=== PATIENT | male | born 1945 | race Caucasian/White ===

== ENCOUNTER 2020-08-19 05:54 | Day surgery (SDC) | payer MEDICARE ==
[2020-08-18 10:37] LABS: EOSINOPHILS # (AUTO) 0.1 X10'3 (0-0.9); EOSINOPHILS % (AUTO) 2.5 % (0-6); HEMATOCRIT 41.5 % (42.0-52.0); MEAN CORPUSCULAR HEMOGLOBIN 26.9 PG (27.0-31.0); MONOCYTES # (AUTO) 0.5 X10'3 (0-0.9)
[2020-08-18 10:39] LABS: BASOPHILS # (AUTO) 0.1 X10'3 (0-0.2); BASOPHILS % (AUTO) 1.3 % (0-1); HEMOGLOBIN 13.7 g/dl (14.0-17.9); LYMPHOCYTES # (AUTO) 0.9 X10'3 (1.1-4.8); LYMPHOCYTES % (AUTO) 16.3 % (21-51); MEAN CORPUSCULAR VOLUME 81.6 FL (78-98); MEAN PLATELET VOLUME 7.5 FL (7.4-10.4); MONOCYTES % (AUTO) 9.8 % (2-12); NEUTROPHILS # (AUTO) 3.9 X10'3 (1.8-7.7); NEUTROPHILS % (AUTO) 70.1 % (42-75); PLATELET COUNT 230 X10'3 (140-440); RED BLOOD COUNT 5.08 X10'6 (4.70-6.10); RED CELL DISTRIBUTION WIDTH 15.8 % (11.5-14.5); WHITE BLOOD COUNT 5.5 X10'3 (4.5-11.0)
[2020-08-18 10:43] LABS: ALBUMIN 3.7 G/DL (3.4-5.0); ANION GAP 10 (8-16); CALCIUM 9.8 MG/DL (8.5-10.1); CHLORIDE 105 MMOL/L (99-107); CREATININE 1.54 MG/DL (0.60-1.10); POTASSIUM 4.1 MMOL/L (3.5-5.1); SODIUM 140 MMOL/L (135-145); eGFR 44 ML/MIN
[2020-08-18 10:44] LABS: BLOOD UREA NITROGEN 24 MG/DL (7-18); BUN/CREATININE RATIO 15.6 (5.4-32.0); GLUCOSE 127 MG/DL (70-104)
[~2020-08-19] VITALS: Ht 190.5 cm; Wt 132.5 kg
[~2020-08-19 05:54] MED LIST: APIX5TAB3 PO; DILT240C90 PO; FLO0.4C PO; METF-436 PO; ZOLP10TA PO
[2020-08-19] MEDS ORDERED: amiodarone 150mg/dext, iso-os 100 ML IV ONE (06:20)
[2020-08-19] MEDS ORDERED: diphenhydrAMINE 25mg capsule PO ONE (06:20)
[2020-08-19] MEDS ORDERED: atropine 0.1mg/ml 10ml syringe IV ONE (06:20)
[2020-08-19] MEDS ORDERED: MIDAZolam 1mg/ml 10ml vial IV ONE (06:20)
[2020-08-19] MEDS ORDERED: morphine 10mg/ml inj. IV ONE (06:20)
[2020-08-19] MEDS ORDERED: LORazepam 0.5 MG tablet PO ONE (06:20)
--- NOTE | 2020-08-19 06:42 | NUR ---
Patient came in and EKG was done for cardioversion, patient was sinus rhythm, ekg was faxed to Dr. Robertson office, and office was called regarding ekg. Dr. Robertson office called back and stated to cancel the cardioversion, and make a followup appointment after 9am today with the office. Patient states he understands.
== END 2020-08-19 06:35 | disposition home or self-care (01) ==
LOC: SSTAY O 05:54
PROVIDERS: ATTEND Internal Medicine Cardiovascular Disease
DX: I48.0 Paroxysmal atrial fibrillation (principal); Z53.8 Procedure and treatment not carried out for other reasons; I11.0 Hypertensive heart disease with heart failure; I50.30 Unspecified diastolic (congestive) heart failure; E11.9 Type 2 diabetes mellitus without complications; K21.9 Gastro-esophageal reflux disease without esophagitis; G47.00 Insomnia, unspecified; Z79.899 Other long term (current) drug therapy; Z82.49 Family history of ischemic heart disease and other diseases of the circulatory system
CPT/HCPCS: 36415; 80048; 85025; 85610; 93005

== ENCOUNTER 2021-04-13 11:27 | Emergency (ER) | payer MEDICARE ==
[~2021-04-13] VITALS: Ht 190.5 cm; Wt 140.0 kg
[2021-04-13] MEDS ORDERED: normal saline 1000ML IV soln IVB ONE (12:10)
[2021-04-13] MEDS ORDERED: diltiazem 5mg/ml 5ml inj. IV ONE (12:10)
[2021-04-13 12:28] LABS: BASOPHILS # (AUTO) 0.1 X10'3 (0-0.2); EOSINOPHILS # (AUTO) 0.1 X10'3 (0-0.9); EOSINOPHILS % (AUTO) 0.9 % (0-6); HEMATOCRIT 42.4 % (42.0-52.0); HEMOGLOBIN 13.9 g/dl (14.0-17.9); LYMPHOCYTES # (AUTO) 0.8 X10'3 (1.1-4.8); LYMPHOCYTES % (AUTO) 13.3 % (21-51); MEAN CORPUSCULAR HGB CONC 32.7 g/dL (33.0-36.5); MEAN CORPUSCULAR VOLUME 85.5 FL (78-98); MEAN PLATELET VOLUME 8.6 FL (7.4-10.4); MONOCYTES # (AUTO) 0.5 X10'3 (0-0.9); MONOCYTES % (AUTO) 7.9 % (2-12); NEUTROPHILS # (AUTO) 4.8 X10'3 (1.8-7.7); NEUTROPHILS % (AUTO) 76.9 % (42-75); PLATELET COUNT 238 X10'3 (140-440); RED BLOOD COUNT 4.96 X10'6 (4.70-6.10); RED CELL DISTRIBUTION WIDTH 16.1 % (11.5-14.5); WHITE BLOOD COUNT 6.3 X10'3 (4.5-11.0)
[2021-04-13 12:38] LABS: ANION GAP 11 (8-16); CHLORIDE 106 MMOL/L (99-107); CREATININE 1.22 MG/DL (0.60-1.10); POTASSIUM 3.9 MMOL/L (3.5-5.1); SODIUM 140 MMOL/L (135-145); TOTAL CARBON DIOXIDE 23.4 MMOL/L (24-32); eGFR 57 ML/MIN
[2021-04-13 12:44] LABS: ALANINE AMINOTRANSFERASE 19 U/L (12-78); ALBUMIN 3.5 G/DL (3.4-5.0); ALBUMIN/GLOBULIN RATIO 0.8 (1.1-1.5); ALKALINE PHOSPHATASE 74 IU/L (46-116); ASPARTATE AMINO TRANSFERASE 14 U/L (10-37); BILIRUBIN,TOTAL 1.4 MG/DL (0.1-1.0); BLOOD UREA NITROGEN 15 MG/DL (7-18); BUN/CREATININE RATIO 12.3 (5.4-32.0); CALCIUM 8.8 MG/DL (8.5-10.1); GLUCOSE 165 MG/DL (70-104)
[2021-04-13] MEDS ORDERED: CARV-49 PO (14:02)
[2021-04-13] MEDS ORDERED: metoprolol tartrate 1mg/ml inj IV ONE (14:05)
[2021-04-13 14:31] VITALS: BP 159/109
== END 2021-04-13 14:51 | disposition home or self-care (01) ==
LOC: ER 11:28
DX: I48.0 Paroxysmal atrial fibrillation (principal); I10 Essential (primary) hypertension; E11.9 Type 2 diabetes mellitus without complications; Z79.899 Other long term (current) drug therapy; Z79.84 Long term (current) use of oral hypoglycemic drugs
CPT/HCPCS: 36415; 71045; 80053; 83880; 84443; 84484; 85025; 93005; 96361; 96374; 96375; 99285; J7030; J3490

== ENCOUNTER 2025-04-30 06:53 | Outpatient (CLI) | payer MEDICARE ==
[~2025-04-30 06:53] MED LIST changes: +DILT180C89 PO; -DILT240C90 PO; -FLO0.4C PO; +HYDR25TA5 PO; +TAMS-55 PO; -ZOLP10TA PO
[2025-04-30 07:34] LABS: TOTAL HEMOGLOBIN 11.9 G/dl (13.5-17.5)
[2025-04-30 08:22] VITALS: PULSE 77; RESP 14; O2SAT 97
--- NOTE | 2025-04-30 14:50 | PROCEDURE NOTE - Respiratory ---
Procedure Note-Respiratory Providers to CC Copies To 1: TYESHA REED MD; JOSE ALBERTO MATHIAS Procedure Name: This is a spirometry study dated April 30, 2025. There was also a lung diffusion capacity measurement accomplished. Spirometry measurements: Both the forced vital capacity and the FEV1 are normal. The FEV1 ratio is normal. The flow rates are normal with the exception of some loss of the terminal flow rates FEF 75%. Bronchodilator was not administered as part of this study. Lung diffusion measurement: The DLCO measurement is normal. The alveolar volume measurement is normal. It is noted that the hemoglobin measurement shows borderline anemia with a hemoglobin at 11.9 grams/deciliter. Conclusion normal spirometry study and normal lung diffusion measurement. The patient shows borderline anemia. We have no previous studies for comparison. Should this patient remain on amiodarone therapy, it is recommended repeat pulmonary function testing be done in approximately one year. ANTHONY SHIELDS MD Apr 30, 2025 14:50
== END 2025-04-30 23:59 | disposition home or self-care (01) ==
LOC: RT 06:53
PROVIDERS: ATTEND Internal Medicine Cardiovascular Disease
DX: R06.02 Shortness of breath (principal); Z79.2 Long term (current) use of antibiotics
CPT/HCPCS: 85018; 94010; 94729; 94760